=== PATIENT | female | born 1985 ===

== ENCOUNTER 2024-11-06 12:39 | Emergency (ER) | payer MEDICAID ==
[~2024-11-06] VITALS: Ht 160 cm; Wt 90.0 kg
[2024-11-06 12:54] VITALS: PULSE 78; RESP 21; O2SAT 100
[2024-11-06 13:39] LABS: BASOPHILS # (AUTO) 0.1 X10'3 (0-0.2); EOSINOPHILS # (AUTO) 0.8 X10'3 (0-0.9); EOSINOPHILS % (AUTO) 7.4 % (0-6); HEMATOCRIT 25.1 % (35.0-45.0); HEMOGLOBIN 8.5 g/dl (12.0-16.0); LYMPHOCYTES # (AUTO) 0.9 X10'3 (1.1-4.8); LYMPHOCYTES % (AUTO) 9.1 % (21-51); MEAN CORPUSCULAR HEMOGLOBIN 30.8 PG (27.0-31.0); MEAN CORPUSCULAR HGB CONC 33.9 g/dL (33.0-36.5); MEAN CORPUSCULAR VOLUME 90.9 FL (78-98); MEAN PLATELET VOLUME 7.5 FL (7.4-10.4); MONOCYTES # (AUTO) 0.8 X10'3 (0-0.9); MONOCYTES % (AUTO) 7.7 % (2-12); NEUTROPHILS # (AUTO) 7.7 X10'3 (1.8-7.7); NEUTROPHILS % (AUTO) 74.8 % (42-75); PLATELET COUNT 209 X10'3 (140-440); RED BLOOD COUNT 2.76 X10'6 (4.20-5.60); RED CELL DISTRIBUTION WIDTH 16.5 % (11.5-14.5); WHITE BLOOD COUNT 10.3 X10'3 (4.5-11.0)
[2024-11-06 13:48] LABS: ALBUMIN 2.5 G/DL (3.4-5.0); ANION GAP 7 (8-16); BLOOD UREA NITROGEN 32 MG/DL (7-18); BUN/CREATININE RATIO 5.9 (10.0-20.0); CALCIUM 9.5 MG/DL (8.5-10.1); CHLORIDE 99 MMOL/L (99-107); CREATININE 5.42 MG/DL (0.40-0.90); GLUCOSE 114 MG/DL (70-104); SODIUM 134 MMOL/L (135-145); TOTAL CARBON DIOXIDE 28.2 MMOL/L (24-32); eCRCL 11 ML/MIN; eGFR 9 ML/MIN
[2024-11-06] MEDS: metoclopramide 5 mg/ml inj IM ONE (14:19)
[2024-11-06 14:59] VITALS: PULSE 70; RESP 22; O2SAT 100
[2024-11-06] MEDS: normal saline 1000ML IV soln IVB ONE (15:06)
[2024-11-06 16:19] VITALS: PULSE 82; RESP 14; O2SAT 100
[2024-11-06 17:27] VITALS: PULSE 80; RESP 14; O2SAT 100
[2024-11-06 19:34] VITALS: BP 161/74; PULSE 78; RESP 18; TEMP 98.8; O2SAT 98
== END 2024-11-06 19:53 | disposition home or self-care (01) ==
LOC: ER 12:39
DX: J18.1 Lobar pneumonia, unspecified organism (principal); K56.609 Unspecified intestinal obstruction, unspecified as to partial versus complete obstruction; N18.6 End stage renal disease; R07.89 Other chest pain; Z99.2 Dependence on renal dialysis
CPT/HCPCS: 36415; 71045; 74018; 74176; 80048; 83605; 84145; 85025; 87040; 87070; 87077; 87186; 93005; 94799; 96372; 99285; J2765; J7030; J7040; 94002; 94760; A6449